=== PATIENT | male | born 1995 | race Caucasian/White ===

== ENCOUNTER 2020-04-10 10:39 | Day surgery (SDC) | payer OTHER, SELFPAY ==
[2020-04-07 09:26] VITALS: BMI 30.8
--- NOTE | 2020-04-08 14:06 | HO.ANESPROP2 ---
Documented by User: Julia Bolanos 04/08/20 14:07 HPI - Anesthesia Eval Consult details Narrative: 24yo M for Upper Endoscopy [facility] Past Medical History Medical History (Updated 04/07/20 @ 09:28 by Sandra Schwartz) GERD (gastroesophageal reflux disease) History of COVID-19 Hx of epistaxis Surgical History Surgical History (Updated 04/07/20 @ 09:28 by Sandra Schwartz) Hx of wisdom tooth extraction Social History Social History Are you a primary home care specialist to a significant other at home: No Do you presently have visiting nurse or other home services: No Smoking Status: Never smoker Use of substances other than those prescribed or required for medical reasons: No Have you been hit, kicked, punched, or otherwise hurt by someone within the past year? If so, by whom?: No Advance Directives Information Provided: No Recently lost weight without trying: No Meds Allergies Allergy/AdvReac Type Severity Reaction Status Date / Time No Known Allergies Allergy Verified 04/10/20 11:05 Home Medications Medication Instructions Recorded Confirmed Type calcium carbonate [Tums] 200 mg PO QID PRN 04/07/20 04/07/20 History Exam Exam Date and Time: April 08, 2020 1406 Height,Weight and Vital Signs: Height 5 ft 10 in Weight 97.522 kg Assessment and Plan Assessment Anesthesia Assessment: Chart Reviewed Documented by User: Helena Richmond 04/10/20 11:22 [facility] Past Medical History Medical History (Updated 04/07/20 @ 09:28 by Sandra Schwartz) GERD (gastroesophageal reflux disease) History of COVID-19 Hx of epistaxis Family History Family history of problems with anesthesia: No Surgical History Surgical History (Updated 04/07/20 @ 09:28 by Sandra Schwartz) Hx of wisdom tooth extraction History of Problems with Anesthesia: No Social History Social History Are you a primary home care specialist to a significant other at home: No Do you presently have visiting nurse or other home services: No Smoking Status: Never smoker Use of substances other than those prescribed or required for medical reasons: No Have you been hit, kicked, punched, or otherwise hurt by someone within the past year? If so, by whom?: No Advance Directives Information Provided: No Recently lost weight without trying: No Meds Allergies Allergy/AdvReac Type Severity Reaction Status Date / Time No Known Allergies Allergy Verified 04/10/20 11:05 Home Medications Medication Instructions Recorded Confirmed Type calcium carbonate [Tums] 200 mg PO QID PRN 04/07/20 04/07/20 History Exam Height,Weight and Vital Signs: Vital Signs Temp Pulse Resp BP Pulse Ox 04/10/20 11:17 98.9 F 80 18 136/68 100 Airway Mallampati Class: II TM Dist: >3cm Neck ROM: Full Heart: RRR Lungs: CTAB Assessment and Plan Assessment Anesthesia Assessment: Anesthesia Plan Discussed and Chart Reviewed Final Anesthetic Review NPO: Yes ASA Class: II Final Preanesthetic Review: No Changes in Pt Med Stat, Meds/Allgs Chart Reviewed, Consent Obtained/Reviewed and Anes Risks/Benef Reviewed Patient Risk: Low Procedure Risk: Low Assessment/Block/Sedation in SS: Assess/Block/Sedation-SS Anesthetic Plan Anesthetic Plan: MAC: Disposition: Standard PACU
[2020-04-10 11:17] VITALS: BP 136/68; PULSE 80; RESP 18; TEMP 37.2; O2SAT 100
--- NOTE | 2020-04-10 11:24 | MHC.SHP ---
Pre-Procedural Eval Section A The patient is an INPATIENT: No Changes since office visit: No Cold of Flu in the past 2 weeks, No New Medical Problems, No Changes in Medication and No Patient answered all questions The History & Physical has been completed within 30 days and I have reviewed it.: Yes Section B Chief Complaint: Epigastric Pain Allergies: Allergies Allergy/AdvReac Type Severity Reaction Status Date / Time No Known Allergies Allergy Verified 04/10/20 11:05 Plan I have reviewed the history and physical and performed a pertinent physical examination on my patient. No changes have occurred unless specified.
[2020-04-10] MEDS: Lactated Ringers 1,000 ML 100 ML IVCONT (11:25)
--- NOTE | 2020-04-10 11:38 | PM.OP ---
Brief Operative Note Date of Service: 04/10/20 Pre-op diagnosis: epigastric pain Post-op diagnosis: same (normal egd) Surgeon: Theodore Melgar Anesthesia: MAC Estimated blood loss (mL): 2 Pathology: other (bxs antrum and egj) Condition: stable Disposition: PACU
[2020-04-10 11:41] VITALS: BP 102/47; PULSE 70; RESP 16; TEMP 36.6; O2SAT 97
--- NOTE | 2020-04-10 11:54 | OP_ITS ---
SURGEON: Theodore Melgar MD INDICATIONS: Epigastric pain. PREOPERATIVE DIAGNOSIS: POSTOPERATIVE DIAGNOSIS: PROCEDURE PERFORMED: Upper endoscopy with biopsy. ESTIMATED BLOOD LOSS: COMPLICATIONS: ANESTHESIA: ASSISTANTS: SPECIMENS: MEDICATIONS: Monitored anesthesia care. DESCRIPTION OF PROCEDURE: History and physical performed. The risks and benefits of the procedure were explained to the patient. Informed consent was obtained. The patient was placed in the left lateral decubitus position. The Olympus video gastroscope was introduced into the esophagus, stomach, and duodenum. Examination was performed and the scope was removed. He tolerated the procedure well and was returned to recovery area in stable condition. FINDINGS: ESOPHAGUS: The esophagus was normal. The EG junction was biopsied. There was no esophagitis. Stomach: The stomach showed no evidence of masses, ulcers, or polyps. Antral biopsies were obtained to rule out H pylori. Duodenum: The bulb and second portion were normal. IMPRESSION: Normal upper endoscopy. RECOMMENDATION: Follow up the biopsy results. Theodore Melgar MD BC/MODL / [id number]
[2020-04-10 11:56] VITALS: BP 113/67; PULSE 61; RESP 16; TEMP 36.6; O2SAT 98
--- NOTE | 2020-04-10 12:26 | HO.POSTANES ---
Post Anesthesia Evaluation Post Anesthesia Evaluation Vital Signs: Vital Signs Temp Pulse Resp BP Pulse Ox 04/10/20 11:56 97.8 F 61 16 113/67 98 04/10/20 11:41 97.8 F 70 16 102/47 L 97 04/10/20 11:17 98.9 F 80 18 136/68 100 Anesthesia: Monitored Mental Status: Awake Pain Control: Satisfactory Nausea/Vomiting: None Hydration: Adequate Anesthesia-Related Issues: No Anes. Related Issues
== END 2020-04-10 12:22 | disposition home or self-care (01) ==
LOC: HO.SSS 10:39
PROVIDERS: Visit Provider Internal Medicine Gastroenterology
PROC: 0DJ08ZZ Inspection of Upper Intestinal Tract, Via Natural or Artificial Opening Endoscopic (ICD-10-PCS; CPT 43235; principal; 2020-04-10 11:50)
DX: R10.13 Epigastric pain (principal); K20.90 Esophagitis, unspecified without bleeding
CPT/HCPCS: 43239; 88305; 88342; J3010

== ENCOUNTER → 2021-07-21 15:32 | Outpatient (BNVA) | payer MEDICAID, SELFPAY | PROVIDERS: PCP Internal Medicine; Referring Provider Internal Medicine; Visit Provider Surgery | DX: Z01.818 Encounter for other preprocedural examination (principal); L05.91 Pilonidal cyst without abscess | CPT/HCPCS: 99202 ==

== ENCOUNTER 2021-08-20 10:52 | Day surgery (SDC) | payer MEDICAID, SELFPAY ==
--- NOTE | 2021-08-19 08:07 | HO.ANESPROP2 ---
Documented by User: Julia Bolanos NP 08/19/21 08:07 HPI - Anesthesia Eval Consult details Narrative: 26yo M for Excision Cyst of the sacrococcygeal area PMFSH Active Problems Active Problems: All Active Problems (Updated 07/21/21 @ 15:59 by Murali Valenzuela MD) Sacrococcygeal pilonidal cyst (Acute) Past Medical History Medical History GERD (gastroesophageal reflux disease) History of COVID-19 Hx of epistaxis Family History Family history of problems with anesthesia: No Surgical History Surgical History (Updated 08/13/21 @ 11:55 by Reyna Clark RN) Hx of esophagogastroduodenoscopy Hx of wisdom tooth extraction History of Problems with Anesthesia: No Social History Social History Are you a primary manager intensive care to a significant other at home: No Do you presently have visiting nurse or other home services: No Patient Tobacco Use Status: Never used Tobacco Use of substances other than those prescribed or required for medical reasons: No Are you DNR?: No Advance Directives: No Advance Directives Information Provided: Yes Recently lost weight without trying: No How much weight loss: 14-23 pounds Nutrition Risks: No Nutritional Risk Meds Allergies Allergy/AdvReac Type Severity Reaction Status Date / Time No Known Allergies Allergy Verified 08/13/21 11:55 Home Medications Medication Instructions Recorded Confirmed Last Taken Type calcium carbonate 200 mg calcium 200 mg PO QID PRN Heartburn 04/07/20 08/13/21 Unknown History (500 mg) chewable tablet (Tums) Exam Exam Date and Time: August 19, 2021 0807 Assessment and Plan Assessment Anesthesia Assessment: Chart Reviewed Final Anesthetic Review Family History of Problems with Anesthesia: No History of Problems with Anesthesia: No Documented by User: Gentry Castillo MD 08/20/21 13:21 HPI - Anesthesia Eval Consult details Narrative: 26yo M for Excision Cyst of the sacrococcygeal area GERD PMFSH Past Medical History Medical History GERD (gastroesophageal reflux disease) History of COVID-19 Hx of epistaxis Functional capacity: independent ambulation Surgical History Surgical History (Updated 08/13/21 @ 11:55 by Reyna Clark, RN) Hx of esophagogastroduodenoscopy Hx of wisdom tooth extraction Social History Social History Are you a primary manager intensive care to a significant other at home: No Do you presently have visiting nurse or other home services: No Patient Tobacco Use Status: Never used Tobacco Use of substances other than those prescribed or required for medical reasons: No Are you DNR?: No Advance Directives: No Advance Directives Information Provided: Yes Recently lost weight without trying: No How much weight loss: 14-23 pounds Nutrition Risks: No Nutritional Risk Meds Allergies Allergy/AdvReac Type Severity Reaction Status Date / Time No Known Allergies Allergy Verified 08/13/21 11:55 Home Medications Medication Instructions Recorded Confirmed Last Taken Type calcium carbonate 200 mg calcium 200 mg PO QID PRN Heartburn 04/07/20 08/13/21 Unknown History (500 mg) chewable tablet (Tums) Exam Airway Mallampati Class: III TM Dist: >3cm Neck ROM: Full Loose/Missing/Broken Teeth: Yes Heart: S1,S2 Lungs: b/l breath sounds Assessment and Plan Assessment Anesthesia Assessment: Anesthesia Plan Discussed Final Anesthetic Review NPO: Yes ASA Class: II Final Preanesthetic Review: Meds/Allgs Chart Reviewed, Consent Obtained/Reviewed and Anes Risks/Benef Reviewed Patient Risk: Intermediate Procedure Risk: Intermediate Anesthetic Plan Anesthetic Plan: GA Disposition: Standard PACU
[2021-08-20] VITALS (11 sets, daily range): BP systolic 99–120; BP diastolic 39–81; PULSE 63–84; RESP 16; TEMP 35.8–36.6; O2SAT 94–100; BMI 31.6
--- NOTE | 2021-08-20 11:18 | MHC.SHP ---
Pre-Procedural Eval Section A Date of Service: 08/20/21 The patient is an INPATIENT: No Changes since office visit: No Cold of Flu in the past 2 weeks, No New Medical Problems, No Changes in Medication and No Patient answered all questions The History & Physical has been completed within 30 days and I have reviewed it.: No Section B Chief Complaint: Pilonidal cyst without abscess Allergies: Allergies Allergy/AdvReac Type Severity Reaction Status Date / Time No Known Allergies Allergy Verified 08/13/21 11:55 Plan I have reviewed the history and physical and performed a pertinent physical examination on my patient. No changes have occurred unless specified.
[2021-08-20] MEDS: Lactated Ringers 1,000 ML 100 ML IVCONT (11:35)
--- NOTE | 2021-08-20 13:42 | P.OP_ITS ---
Operative Note Operative Note Date of Service: 08/20/21 Narrative: Preop diagnosis: Pilonidal cyst, sacrococcygeal area Postop diagnosis: Pilonidal cyst, sacrococcygeal area Procedure: Excision of pilonidal cyst, sacrococcygeal area Surgeon: Murali Valenzuela MD Homogenizer Operator: janette Herring student The patient is a 26-year-old male with an area of recurrent pain, swelling and tenderness in the sacrococcygeal region. Examination and overall clinical picture was consistent with a pilonidal cyst. He understood the technique of excision under local anesthesia. He was aware of the risks, benefits, and alternatives. He was brought to the operating room. He was placed in prone position under general anesthesia via endotracheal tube. The sacrococcygeal area was prepped and draped in the usual sterile fashion. A surgical time-out was done. The patient received cefazolin 2 g IV preoperatively. Examination of the area of the tailbone revealed a light induration with multiple midline pits within the gluteal cleft. I marked the planned line of incision and infiltrated this with lidocaine 1%. I made an elliptical incision pending all these midline pits and the area of induration more cephalad to this using blade 15. This was carried down through the full-thickness of the skin and subcutaneous fat with electrocautery. We continued to carried down this dissection through the subcutaneous layer to excise all the indurated areas as well as the associated tracts and midline pits. We completed this excision and the specimen was sent for pathology. The excised area was about 10 cm in length and 2 cm wide and 2 cm deep. I had to do a lot of electrocautery to control oozing areas. Once hemostasis was confirmed, I proceeded to undermine a thick layer of subcutaneous fat as well as skin to create flaps on both sides and allow closure without tension. Reapposed the deep subcutaneous layer multiple Dexon 2-0 interrupted sutures. Skin closure was achieved the multiple vertical mattress nylon 2-0 sutures and some simple interrupted sutures. I infiltrated the area with Marcaine 0.5% for postop analgesia. Thick dressings were applied and the procedure was completed The patient tolerated procedure well. There were no complications noted. In itial and final counts of sponges and instruments were correct. Estimated blood loss was about 75 cc . The patient extubated without difficulty and transferred to the recovery room with stable vital signs.
[2021-08-20] MEDS: oxyCODONE HCl Immed Release 5 MG TABLET PO (15:00)
[2021-08-20] MEDS: Acetaminophen 325 MG TABLET 650 MG PO (15:01)
== END 2021-08-20 16:35 | disposition home or self-care (01) ==
PROVIDERS: PCP Internal Medicine; Visit Provider Surgery
PROC: (CPT 11771; principal; 2021-08-20 13:00)
DX: L05.91 Pilonidal cyst without abscess (principal); K21.9 Gastro-esophageal reflux disease without esophagitis; Z86.16 Personal history of COVID-19
CPT/HCPCS: 11771; 88304; J0330; J0690; J1100; J2250; J2405; J2550; J3010

== ENCOUNTER 2021-12-01 11:15 | Outpatient (REF) | payer MEDICAID, SELFPAY ==
--- NOTE | ~2021-12-01 | XR_ITS ---
EXAMINATION: XR FOOT, LEFT CLINICAL INFORMATION: Pain in the left foot COMPARISON: None TECHNIQUE: AP, lateral, and oblique views of the left foot. FINDINGS: No fracture or dislocation. Alignment is maintained. Joint spaces are maintained. The soft tissues are unremarkable. XR/XR foot LT min 3V IMPRESSION: Normal appearance of the left foot.
--- NOTE | ~2021-12-01 | XR_ITS ---
EXAMINATION: XR SKULL CLINICAL INFORMATION: Bony growth of the right side. COMPARISON: None TECHNIQUE: 5 views of the skull were obtained. FINDINGS: There is no acute osseous finding. No fracture. No osseous excrescence or focal bony abnormality. The paranasal sinuses are grossly aerated. The mastoid air cells appear aerated. XR/XR skull <4V IMPRESSION: No bony abnormality of the calvarium.
== END 2021-12-01 11:16 | disposition home or self-care (01) ==
LOC: HO.XRAY 11:15
PROVIDERS: PCP Internal Medicine; Visit Provider Internal Medicine
DX: M79.672 Pain in left foot (principal)
CPT/HCPCS: 70250; 73630